=== PATIENT | female | born 1965 | race Two or more races ===

== ENCOUNTER 2022-03-11 10:37 | Emergency (ER) | payer SELFPAY ==
[~2022-03-11] VITALS: Ht 162.6 cm; Wt 93.0 kg
[2022-03-11 10:38] VITALS: BP 153/85
[2022-03-11 11:12] LABS: Urine Bacteria FEW /hpf (None Seen); Urine Blood Negative /uL (Negative); Urine Specific Gravity 1.002 (1.001-1.035); Urine WBC 44 /hpf (0 - 5)
== END 2022-03-11 11:07 | disposition left against medical advice (07) ==
LOC: ER 10:37
DX: R30.0 Dysuria (principal); M54.59 Other low back pain; Z53.21 Procedure and treatment not carried out due to patient leaving prior to being seen by health care provider
CPT/HCPCS: 81001